=== PATIENT | male | born 1985 | race Caucasian/White ===

== ENCOUNTER 2019-07-17 17:02 | Emergency (ER) | payer BC ==
[~2019-07-17] VITALS: Ht 182.9 cm; Wt 109.1 kg
[2019-07-17 17:03] VITALS: TEMP 98
[2019-07-17] MEDS ORDERED: NORCO 325 MG-51 TAB PO (19:05)
[2019-07-17 20:05] VITALS: BP 121/84; PULSE 93
== END 2019-07-17 20:07 | disposition home or self-care (01) ==
LOC: COL.ER 17:02
DX: S82.841A Displaced bimalleolar fracture of right lower leg, initial encounter for closed fracture (principal); Z23 Encounter for immunization; V00.131A Fall from skateboard, initial encounter
CPT/HCPCS: J2704; J3010; J7030

== ENCOUNTER 2021-07-28 00:37 | Emergency (ER) | payer BC ==
[~2021-07-28] VITALS: Ht 182.9 cm; Wt 106.8 kg
[~2021-07-28 00:37] MED LIST: NORCO 325 MG-51 TAB PO
[2021-07-28] MEDS ORDERED: CEPHALEXIN500 M1 PO (01:32)
[2021-07-28 02:13] VITALS: BP 131/72; PULSE 88; TEMP 98.8
== END 2021-07-28 02:00 | disposition home or self-care (01) ==
LOC: COL.ER 00:37
DX: S61.412A Laceration without foreign body of left hand, initial encounter (principal); W26.0XXA Contact with knife, initial encounter